=== PATIENT | female | born 1990 | race Caucasian/White ===

== ENCOUNTER 2016-05-25 18:39 | Emergency (ER) | payer OTHER ==
[~2016-05-25] VITALS: Ht 157.5 cm; Wt 83.9 kg
[2016-05-25 19:41] VITALS: BP 110/60
--- NOTE | 2016-05-25 20:26 | NUR ---
PATIENT PRESENTS TO ED WITH LEFT EAR PAIN AND FACIAL SWELLING . PT DENIES N/V/D; SKIN IS PINK/WARM/DRY; AAOX4 WITH EVEN AND STEADY GAIT; LUNGS CLEAR BL; HR EVEN AND REGULAR; PT DENIES ANY FEVER, CP, SOB, OR COUGH AT THIS TIME; PATIENT STATES PAIN OF 10/10 AT THIS TIME; VSS; PATIENT POSITIONED FOR COMFORT; HOB ELEVATED; BEDRAILS UP X2; BED DOWN. ER MD MADE AWARE OF PT STATUS.
[2016-05-25] MEDS ORDERED: HYDROcodone/APAP 10/325 MG 1 TAB TAB PO PRN (20:30)
--- NOTE | 2016-05-25 20:45 | NUR ---
Patient ambulated to bed 07.
[2016-05-25] MEDS ORDERED: KETOROLAC 30 MG/ML VIAL IM ONE (21:20)
[2016-05-25] MEDS ORDERED: CLINDAMYCIN 600 MG/4 ML VIAL IM ONE (21:20)
[2016-05-25] MEDS ORDERED: LIDOCAINE 1% ED 50 ML ONE (21:21)
[2016-05-25 22:08] VITALS: BP 116/71
--- NOTE | 2016-05-25 22:09 | NUR ---
Patient discharged with v/s stable. Written and verbal after care instructions given and explained. Patient alert, oriented and verbalized understanding of instructions. Ambulatory with steady gait. All questions addressed prior to discharge. ID band removed. Patient advised to follow up with PMD. Rx of NORCO AND CLINDAMYCIN given. Patient educated on indication of medication including possible reaction and side effects. Opportunity to ask questions provided and answered.
== END 2016-05-25 22:09 | disposition home or self-care (01) ==
LOC: MED 18:39
DX: L02.01 Cutaneous abscess of face (principal); L03.211 Cellulitis of face
CPT/HCPCS: 10061; 81002; 81025; 96372; 99284; J1885; J2001; J3490

== ENCOUNTER 2017-12-18 21:25 | Emergency (ER) | payer OTHER ==
[~2017-12-18] VITALS: Ht 157.5 cm; Wt 81.6 kg
[2017-12-18 21:42] VITALS: BP 110/72
[2017-12-18] MEDS: ONDANSETRON 4 MG ODT PO ONE (22:33)
[2017-12-18 23:28] VITALS: BP 105/64
== END 2017-12-18 23:25 | disposition home or self-care (01) ==
LOC: MED 21:25
DX: O21.8 Other vomiting complicating pregnancy (principal); O23.41 Unspecified infection of urinary tract in pregnancy, first trimester; Z3A.01 Less than 8 weeks gestation of pregnancy
CPT/HCPCS: 81002; 81025; 99283; Q0162

== ENCOUNTER 2020-06-16 21:44 | Emergency (ER) | payer OTHER ==
[~2020-06-16] VITALS: Ht 157.5 cm; Wt 86.2 kg
[2020-06-16 21:58] VITALS: BP 119/62
[2020-06-16 22:51] LABS: BASOPHILS % (AUTO) 0.2 % (0.0-2.0); EOSINOPHILS # (AUTO) 0.1 K/uL (0-0.4); EOSINOPHILS % (AUTO) 1.4 % (0.0-4.0); HEMATOCRIT 37.8 % (36-48); HEMOGLOBIN 12.8 g/dL (12.0-16.0); LYMPHOCYTES # (AUTO) 2.1 K/uL (2.5-16.5); LYMPHOCYTES % (AUTO) 23.2 % (20.5-51.1); MEAN CORPUSCULAR HEMOGLOBIN 30 pg (27-31); MEAN CORPUSCULAR HGB CONC 34 g/dL (33-37); MEAN CORPUSCULAR VOLUME 86.7 fL (80-94); MONOCYTES # (AUTO) 0.6 K/uL (0.8-1.0); MONOCYTES % (AUTO) 6.7 % (1.7-9.3); NEUTROPHILS # (AUTO) 6.2 K/uL (1.8-7.7); NEUTROPHILS % (AUTO) 68.5 % (42.2-75.2); PLATELET COUNT (AUTO) 221 K/uL (140-450); RED BLOOD CELL COUNT(AUTO) 4.35 MIL/uL (4.20-5.40); RED CELL DISTRIBUTION WIDTH 13.9 % (11.6-13.7); WHITE BLOOD COUNT (AUTO) 9.1 K/uL (4.8-10.8)
[2020-06-16 23:07] LABS: ALBUMIN 3.9 g/dL (3.4-5.0); CARBON DIOXIDE 26.7 mmol/L (21-32); CREATININE 0.8 mg/dL (0.6-1.3); POTASSIUM 3.7 mmol/L (3.5-5.1); TOTAL BILIRUBIN 0.8 mg/dL (0.0-1.0)
[2020-06-17] MEDS ORDERED: DICYCLOMINE HCL LIQUID 20 MG, ALUMINUM HYD/MAG/SIMETHICONE 30 ML, LIDOCAINE VISCOUS 2% ... PO ONE ×3 (00:35)
[2020-06-17] MEDS ORDERED: DICYCLOMINE HCL LIQUID 10 MG/5 ML UDC ONE (00:45)
[2020-06-17] MEDS ORDERED: LIDOCAINE VISCOUS 2% 20 ML UDC ONE (00:45)
[2020-06-17] MEDS ORDERED: ALUMINUM HYD/MAG/SIMETHICONE 30 ML UDC ONE (00:45)
[2020-06-17] MEDS ORDERED: ONDANSETRON 4 MG ODT PO ONE (01:20)
[2020-06-17] MEDS ORDERED: MORPHINE SULFATE 4 MG/ML SYR IM ONE (01:20)
[2020-06-17] MEDS ORDERED: FAMO-90 PO (03:20)
[2020-06-17] MEDS ORDERED: ONDA4TAB PO (03:20)
[2020-06-17 03:28] VITALS: BP 113/66
== END 2020-06-17 03:28 | disposition home or self-care (01) ==
LOC: MED 21:44
DX: K29.70 Gastritis, unspecified, without bleeding (principal); Z79.899 Other long term (current) drug therapy
CPT/HCPCS: 36415; 76705; 80053; 83690; 85025; 96372; 99284; J2270; Q0162

== ENCOUNTER 2020-11-06 07:46 | Emergency (ER) | payer OTHER ==
[~2020-11-06] VITALS: Ht 157.5 cm; Wt 83.0 kg
[~2020-11-06 07:46] MED LIST: FAMO-90 PO; ONDA4TAB PO
[2020-11-06 07:55] VITALS: BP 120/65
[2020-11-06] MEDS ORDERED: DOPPLER MC ONE (08:14)
[2020-11-06] MEDS ORDERED: ONDANSETRON 4 MG ODT PO ONE (08:30)
--- NOTE | 2020-11-06 08:34 | NUR ---
PO MEDS GIVEN-NADR AT THIS TIME
[2020-11-06] MEDS ORDERED: DICYCLOMINE HCL LIQUID 20 MG, ALUMINUM HYD/MAG/SIMETHICONE 30 ML, LIDOCAINE VISCOUS 2% ... PO ONE ×3 (08:40)
[2020-11-06] MEDS ORDERED: ONDA8TAB87 PO (08:44)
[2020-11-06] MEDS ORDERED: DICYCLOMINE HCL LIQUID 10 MG/5 ML UDC ONE ×2 (08:49)
[2020-11-06] MEDS ORDERED: ALUMINUM HYD/MAG/SIMETHICONE 30 ML UDC ONE ×3 (08:49→08:50)
--- NOTE | 2020-11-06 09:00 | NUR ---
30/F C/O N/V/D AND DIZZINESS X2 DAYS. STATES UNABLE TO EAT OR SLEEP FOR TWO DAYS, DENIES ABDOMINAL PAIN, OR URINARY SYMPTOMS. PT 28 WEEKS , A0. MEDHX: DENIES ALLERGIES: DENIES
--- NOTE | 2020-11-06 09:01 | NUR ---
COVID-PCR SENT TO LAB-PT [facility].
[2020-11-06 09:11] VITALS: BP 120/65
== END 2020-11-06 09:10 | disposition home or self-care (01) ==
LOC: MED 07:46
DX: O21.9 Vomiting of pregnancy, unspecified (principal); O26.892 Other specified pregnancy related conditions, second trimester; Z20.822 Contact with and (suspected) exposure to COVID-19; Z3A.26 26 weeks gestation of pregnancy
CPT/HCPCS: 81002; 99283; Q0162; U0003

== ENCOUNTER 2020-11-11 15:53 | Emergency (ER) | payer OTHER ==
[~2020-11-11] VITALS: Ht 165.1 cm; Wt 84.8 kg
[~2020-11-11 15:53] MED LIST changes: +ONDA8TAB87 PO
--- NOTE | 2020-11-11 15:58 | NUR ---
PT TAKEN TO ER BED 1 VIA W/C FROM L&D.
--- NOTE | 2020-11-11 16:19 | NUR ---
DR. JOSHUA AT PT BEDSIDE FOR FURTHER EVALUATION.
[2020-11-11 16:20] VITALS: BP 105/61
--- NOTE | 2020-11-11 16:25 | NUR ---
30 Y/O FEMALE BIBA TAKEN TO L&D, PT IS 28 WEEKS , [id number], DANIEL 02/04/21, LMP 05/18. PER EMT PT WAS SITTING AT HOME FEELING SOB ON ARRIVAL PATIENT STATED SHE WAS NO LONGER SOB. PT TAKEN TO L&D AND STATED TO RN THERE THAT SHE WAS HAVING CHEST PAIN. PT TAKEN TO ER BED 1 TO BE SEEN BY ERMD. DENIES N/V, DENIES FEVER/CHILLS. DENIES PMH NKA
[2020-11-11] MEDS ORDERED: ACETAMINOPHEN 325 MG TAB PO ONE (16:35)
[2020-11-11] MEDS ORDERED: ACETAMINOPHEN 325 MG TAB ONE (16:40)
--- NOTE | 2020-11-11 18:07 | NUR ---
PT PROVIDED WITH FOOD, MD MADE AWARE, VSS, WILL CONTINUE TO MONITOR.
[2020-11-11 18:46] LABS: BASOPHILS % (AUTO) 0.1 % (0.0-2.0); EOSINOPHILS % (AUTO) 0.4 % (0.0-4.0); HEMATOCRIT 26.8 % (36-48); LYMPHOCYTES # (AUTO) 1.2 K/uL (2.5-16.5); LYMPHOCYTES % (AUTO) 10.1 % (20.5-51.1); MEAN CORPUSCULAR HEMOGLOBIN 28 pg (27-31); MEAN CORPUSCULAR HGB CONC 34 g/dL (33-37); MEAN CORPUSCULAR VOLUME 83.3 fL (80-94); MONOCYTES # (AUTO) 0.4 K/uL (0.8-1.0); MONOCYTES % (AUTO) 3.8 % (1.7-9.3); NEUTROPHILS # (AUTO) 9.9 K/uL (1.8-7.7); NEUTROPHILS % (AUTO) 85.6 % (42.2-75.2); PLATELET COUNT (AUTO) 180 K/uL (140-450); RED BLOOD CELL COUNT(AUTO) 3.22 MIL/uL (4.20-5.40); RED CELL DISTRIBUTION WIDTH 14.1 % (11.6-13.7); WHITE BLOOD COUNT (AUTO) 11.5 K/uL (4.8-10.8)
[2020-11-11 18:59] LABS: ALBUMIN 2.6 g/dL (3.4-5.0); ANION GAP 15.1 (8-16); CARBON DIOXIDE 22.2 mmol/L (21-32); CREATININE 0.5 mg/dL (0.6-1.3); POTASSIUM 3.3 mmol/L (3.5-5.1); TOTAL BILIRUBIN 0.5 mg/dL (0.0-1.0)
--- NOTE | 2020-11-11 19:20 | NUR ---
GAVE REPORT TO SHIKHA LIND. TRANSFER OF CARE AT THIS.
--- NOTE | 2020-11-11 19:25 | NUR ---
Note undone in EDM - 11/11/20 at 2104 by SVETAK PATIENT LAYING IN BED LOCKED IN LOWEST POSITION W X2 SIDERAILS UP FOR PATIENT SAFETY. HOB SLIGHTLY ELEVATED. PATIENT REPORTS 12/07 MID EPIGASTRIC PAIN, AND MID STERNAL CHEST PAIN 11/07. PATIENT DENIES SOB. BOWELS SOUNDS PRESENT THROUGHOUT, ABDOMEN SOFT NON-TENDER. S1 S2 PRESENT, CAP REFIL <3 SEC, +2 RADIAL PULSES, SKIN WARM, AND DRY. LUNG SOUNDS CLEAR THROUGHOUT. CONNECTED TO MONITOR W VSS. NAD NOTED, WILL CONTINUE TO MONITOR.
--- NOTE | 2020-11-11 19:25 | NUR ---
PATIENT LAYING IN BED LOCKED IN LOWEST POSITION W X2 SIDERAILS UP FOR PATIENT SAFETY. HOB SLIGHTLY ELEVATED. PATIENT REPORTS 10/10 MID EPIGASTRIC PAIN, AND MID STERNAL CHEST PAIN 9/10. PATIENT ALSO REPORTS DIZZYNESS AND FATIGUE. DENIES N/V. PATIENT DENIES SOB. BOWELS SOUNDS PRESENT THROUGHOUT, ABDOMEN SOFT NON-TENDER. S1 S2 PRESENT, CAP REFIL <3 SEC, +2 RADIAL PULSES, SKIN WARM, AND DRY. LUNG SOUNDS CLEAR THROUGHOUT. CONNECTED TO MONITOR W VSS. NAD NOTED, WILL CONTINUE TO MONITOR.
--- NOTE | 2020-11-11 19:30 | NUR ---
ERMD MADE AWARE OF PATIENT PAIN. PER ERMD NO MORE PAIN MEDICATION FOR PATIENT AT THIS TIME. PROVIDED PATIENT W BLANKET FOR COMFORT MEASURE.
[2020-11-11 19:53] LABS: APPEARANCE,URINE CLEAR (CLEAR); BILIRUBIN,URINE NEGATIVE (NEGATIVE); BLOOD, URINE NEGATIVE (NEGATIVE); COLOR,URINE YELLOW (YELLOW); LEUKOCYTE ESTERASE ,URINE TRACE (NEGATIVE); NITRITE, URINE NEGATIVE (NEGATIVE); UGLUCOSE 2+ (NEGATIVE)
[2020-11-11 19:58] LABS: RBC,URINE 0-5 /HPF (0-5)
--- NOTE | 2020-11-11 21:05 | NUR ---
ERMD AT BEDSIDE FOR CONTINUATION OF PATIENT CARE.
[2020-11-11] MEDS ORDERED: CEPH-588 PO (21:08)
[2020-11-11 21:58] VITALS: BP 105/65
--- NOTE | 2020-11-11 22:00 | NUR ---
PATIENT LAYING IN BED SUPINE LOCKED IN LOWEST POSITION. BREATHING EVEN AND UNLABORED. CONNECTED TO MONITOR W VSS.
== END 2020-11-11 22:43 | disposition home or self-care (01) ==
LOC: MED 15:53
DX: O23.32 Infections of other parts of urinary tract in pregnancy, second trimester (principal); O26.892 Other specified pregnancy related conditions, second trimester; R07.9 Chest pain, unspecified; R10.13 Epigastric pain; Z3A.27 27 weeks gestation of pregnancy
CPT/HCPCS: 36415; 80053; 81001; 81025; 83690; 84484; 85025; 87086; 93005; 99285

== ENCOUNTER 2023-02-21 22:13 | Emergency (ER) | payer OTHER ==
[~2023-02-21] VITALS: Ht 157.5 cm; Wt 81.6 kg
[~2023-02-21 22:13] MED LIST changes: +CEPH-588 PO
[2023-02-21 22:31] VITALS: BP 106/59; PULSE 69; RESP 16; TEMP 96.9; O2SAT 99
[2023-02-21 23:23] LABS: APPEARANCE,URINE CLEAR (CLEAR); BILIRUBIN,URINE NEGATIVE (NEGATIVE); BLOOD, URINE NEGATIVE (NEGATIVE); COLOR,URINE YELLOW (YELLOW); LEUKOCYTE ESTERASE ,URINE NEGATIVE (NEGATIVE); NITRITE, URINE NEGATIVE (NEGATIVE); PROTEIN,URINE NEGATIVE (NEGATIVE); UGLUCOSE NEGATIVE (NEGATIVE); UROBILINOGEN,URINE 0.2 EU/dL (0.2 - 1)
[2023-02-21 23:30] LABS: BASOPHILS % (AUTO) 0.2 % (0.0-2.0); EOSINOPHILS # (AUTO) 0.2 K/uL (0-0.4); EOSINOPHILS % (AUTO) 2.2 % (0.0-4.0); HEMATOCRIT 35.6 % (36-48); HEMOGLOBIN 12.6 g/dL (12.0-16.0); LYMPHOCYTES # (AUTO) 2.3 K/uL (2.5-16.5); LYMPHOCYTES % (AUTO) 28.7 % (20.5-51.1); MEAN CORPUSCULAR HEMOGLOBIN 30 pg (27-31); MEAN CORPUSCULAR HGB CONC 35 g/dL (33-37); MEAN CORPUSCULAR VOLUME 85.9 fL (80-94); MONOCYTES # (AUTO) 0.4 K/uL (0.8-1.0); MONOCYTES % (AUTO) 5.2 % (1.7-9.3); NEUTROPHILS # (AUTO) 5.2 K/uL (1.8-7.7); NEUTROPHILS % (AUTO) 63.7 % (42.2-75.2); PLATELET COUNT (AUTO) 216 K/uL (140-450); RED BLOOD CELL COUNT(AUTO) 4.15 MIL/uL (4.20-5.40); RED CELL DISTRIBUTION WIDTH 13.6 % (11.6-13.7); WHITE BLOOD COUNT (AUTO) 8.1 K/uL (4.8-10.8)
[2023-02-21 23:41] LABS: ANION GAP 11.4 (8-16); CARBON DIOXIDE 25.5 mmol/L (21-32); CREATININE 0.8 mg/dL (0.6-1.3); POTASSIUM 3.9 mmol/L (3.5-5.1)
[2023-02-21 23:47] LABS: ALBUMIN 3.5 g/dL (3.4-5.0); BILIRUBIN,DIRECT 0.1 mg/dL (0.0-0.3); TOTAL BILIRUBIN 0.6 mg/dL (0.0-1.0); TOTAL PROTEIN, SERUM 7.7 g/dL (6.4-8.2)
[2023-02-22] MEDS ORDERED: ALUMINUM HYD/MAG/SIMETHICONE 30 ML UDC PO ONE (02:30)
[2023-02-22] MEDS ORDERED: FAMO-92 PO (02:49)
== END 2023-02-22 02:50 | disposition home or self-care (01) ==
LOC: MED 22:13
DX: K29.70 Gastritis, unspecified, without bleeding (principal); K76.0 Fatty (change of) liver, not elsewhere classified; Z79.899 Other long term (current) drug therapy
CPT/HCPCS: 36415; 76705; 80048; 80076; 81003; 82150; 83690; 85025; 99284

== ENCOUNTER 2023-10-20 23:30 | Emergency (ER) | payer OTHER ==
[~2023-10-20] VITALS: Ht 157.5 cm; Wt 92.6 kg
[~2023-10-20 23:30] MED LIST changes: +FAMO-92 PO
[2023-10-20 23:36] VITALS: BP 100/49; PULSE 71; RESP 16; TEMP 98.4; O2SAT 99
[2023-10-20 23:50] VITALS: BP 102/47; PULSE 76; RESP 18; TEMP 98; O2SAT 100
[2023-10-21] MEDS: ACETAMINOPHEN EXTRA STRENGTH 500 MG TAB PO ONE (00:39)
[2023-10-21 00:41] LABS: APPEARANCE,URINE CLEAR (CLEAR); BILIRUBIN,URINE NEGATIVE (NEGATIVE); BLOOD, URINE NEGATIVE (NEGATIVE); COLOR,URINE YELLOW (YELLOW); LEUKOCYTE ESTERASE ,URINE NEGATIVE (NEGATIVE); NITRITE, URINE NEGATIVE (NEGATIVE); PROTEIN,URINE NEGATIVE (NEGATIVE); UGLUCOSE NEGATIVE (NEGATIVE); UROBILINOGEN,URINE 0.2 EU/dL (0.2 - 1)
[2023-10-21] MEDS: HYDROcodone/APAP 5/325 MG 1 TAB TAB PO ONE (00:47)
[2023-10-21 00:57] LABS: BASOPHILS # (AUTO) 0.2 K/uL (0.00-0.22); BASOPHILS % (AUTO) 2.2 % (0.0-2.0); EOSINOPHILS # (AUTO) 0.3 K/uL (0-0.4); EOSINOPHILS % (AUTO) 3.1 % (0.0-4.0); HEMATOCRIT 34.2 % (36-48); HEMOGLOBIN 11.8 g/dL (12.0-16.0); LYMPHOCYTES # (AUTO) 1.3 K/uL (2.5-16.5); LYMPHOCYTES % (AUTO) 14.7 % (20.5-51.1); MEAN CORPUSCULAR HEMOGLOBIN 30 pg (27-31); MEAN CORPUSCULAR HGB CONC 35 g/dL (33-37); MONOCYTES # (AUTO) 0.5 K/uL (0.8-1.0); NEUTROPHILS # (AUTO) 6.8 K/uL (1.8-7.7); PLATELET COUNT (AUTO) 234 K/uL (140-450); RED BLOOD CELL COUNT(AUTO) 3.98 MIL/uL (4.20-5.40); RED CELL DISTRIBUTION WIDTH 14.3 % (11.6-13.7); WHITE BLOOD COUNT (AUTO) 9.1 K/uL (4.8-10.8)
[2023-10-21 00:58] LABS: ANION GAP 12.2 (8-16); CALCIUM 8.7 mg/dL (8.5-10.1); CARBON DIOXIDE 25.5 mmol/L (21-32); CREATININE 0.8 mg/dL (0.6-1.3); POTASSIUM 3.7 mmol/L (3.5-5.1)
[2023-10-21] MEDS ORDERED: ACET500T99 PO (01:30)
== END 2023-10-21 01:48 | disposition home or self-care (01) ==
LOC: MED 23:30
DX: O26.891 Other specified pregnancy related conditions, first trimester (principal); M54.50 Low back pain, unspecified; Z3A.01 Less than 8 weeks gestation of pregnancy; Z79.899 Other long term (current) drug therapy
CPT/HCPCS: 36415; 76801; 80048; 81003; 81025; 84702; 85025; 86900; 86901; 99284; Q0092